=== PATIENT | female | born 1990 | race Hispanic/Latino ===

== ENCOUNTER → 2023-09-30 | Outpatient (CLI) | payer OTHER, MEDICARE | END | disposition home or self-care (01) | LOC: SHCH 07:30 | PROVIDERS: ATTEND Internal Medicine Cardiovascular Disease | DX: I05.9 Rheumatic mitral valve disease, unspecified (principal); R55 Syncope and collapse | CPT/HCPCS: 93306 ==

== ENCOUNTER → 2025-07-17 | Outpatient (CLI) | payer OTHER, MEDICAID ==
--- NOTE | 2025-07-17 15:02 | HMCIMG ---
US ABDOMEN, RIGHT UPPER QUADRANT Clinical History: Elevated liver transaminase levels. Technique: Right upper quadrant sonography performed with image documentation. Comparison: None provided. Findings: Liver: The liver is enlarged, measuring 17 cm in span, with increased echogenicity consistent with fatty infiltration suggestive of hepatic steatosis. Gallbladder: The gallbladder wall thickness measures 2 mm and appears normal. No gallbladder wall thickening or gallstones are identified. Common Bile Duct: The common bile duct measures 3.6 mm, which is within normal limits. Pancreas: The head and body of the pancreas are within normal limits. The tail of the pancreas is obscured by bowel gas limiting complete assessment. Right Kidney: The right kidney measures 6.5 ??? 2.7 ??? 4.2 cm. It appears normal in cortical thickness and echotexture. No renal mass, calculus, or hydronephrosis is observed. Additional Comments: Visualization of the upper abdominal structures is limited by bowel gas. IMPRESSION: 1. Hepatomegaly with fatty infiltration, consistent with hepatic steatosis. Liver span measures 17 cm. 2. No evidence of cholecystitis or biliary obstruction. Normal gallbladder wall thickness and common bile duct diameter. 3. Pancreatic tail incompletely visualized due to bowel gas. Head and body of pancreas appear normal. 4. Right kidney normal in size, cortical thickness, and echotexture, without mass, calculus, or hydronephrosis. 5. Limited visualization of upper abdominal structures due to bowel gas. /Lutz
== END | disposition home or self-care (01) ==
LOC: RAH 08:29
PROVIDERS: ATTEND Internal Medicine
DX: K76.0 Fatty (change of) liver, not elsewhere classified (principal); R16.0 Hepatomegaly, not elsewhere classified; R74.01 Elevation of levels of liver transaminase levels; E66.9 Obesity, unspecified
CPT/HCPCS: 76705